=== PATIENT | female | born 1980 | race Caucasian/White ===

== ENCOUNTER 2020-12-07 18:20 | Inpatient (IN) | payer OTHER ==
[2020-12-07] MEDS ORDERED: LIDOCAINE 1% MPF 30 ML VIAL ONE (21:00)
[2020-12-07] MEDS ORDERED: MORPHINE 4 MG/ML SYR ONE (21:00)
[2020-12-07] MEDS ORDERED: NA CHLORIDE 0.9% 1,000 ML ONE (21:00)
[2020-12-07 21:21] LABS: Basophils % 0.7 % (0-1.3); Hematocrit 39.9 % (36.0-45.0); Lymphocytes % 19.9 % (15.3-44.8); MPV 10.6 fL (7.6-11.3); RBC Red Blood Cell Count 4.38 M/uL (3.86-4.86)
--- NOTE | 2020-12-07 21:29 | ER ---
Nurse's Notes [facility] Name: Christa Lara Age: 40 yrs Sex: Female : 1980 Arrival Date: 12/07/2020 Time: 18:25 Bed 28 Private MD: Diagnosis: Abscess of Bartholin's gland-Left;Cellulitis of buttock-Right;Hyperglycemia, unspecified Presentation: 12/07 18:45 Chief complaint: Patient states: was at [place] yesterday and was told she had sepsis, em was discharged yesterday and told to go to the ER to get re-evaluated, reports fever of 101 and nausea. Coronavirus screen: Client denies travel out of the [place] in the last 14 days. Ebola Screen: Patient negative for fever greater than or equal to 101.5 degrees Fahrenheit, and additional compatible Ebola Virus Disease symptoms Patient denies exposure to infectious person. Patient denies travel to an Ebola-affected area in the 21 days before illness onset. No symptoms or risks identified at this time. Initial Sepsis Screen: Does the patient meet any 2 criteria? HR > 90 bpm. No. Patient's initial sepsis screen is negative. Does the patient have a suspected source of infection? No. Patient's initial sepsis screen is negative. Risk Assessment: Do you want to hurt yourself or someone else? Patient reports no desire to harm self or others. Onset of symptoms was December 07, 2020. 18:45 Method Of Arrival: Ambulatory em 18:45 Acuity: RAMIRO 3 em Triage Assessment: 22:11 General: Appears in no apparent distress. Behavior is calm, cooperative. 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 - Social history:: Smoking status: Patient reports the use of cigarette tobacco products, smokes one-half pack cigarettes per day. - Family history:: not pertinent. - Hospitalizations: : No recent hospitalization is reported. Vital Signs: 18:45 BP 138 / 105; Pulse 105; Resp 20; Temp 100.3(O); Pulse Ox 99% on R/A; Weight 99.79 kg; em Height 5 ft. 8 in. (172.72 cm); Pain 8/10; 22:46 BP 134 / 71; Pulse 84; Resp 16; Temp 98.9; Pulse Ox 99% ; ak2 18:45 Body Mass Index 33.45 (99.79 kg, 172.72 cm) em ED Course: 18:25 Patient arrived in ED. ds1 18:48 Triage completed. em 18:50 Arm band placed on. em 19:56 Liang Lakhani MD is Attending Physician. rn 20:36 Nabil Hurley is Primary Nurse. ak2 21:00 Assist provider with I \\T\\ D: of an abscess on left Bartholin's gland Set up I\\T\\D tray. bb Performed by Liang Lakhani MD Culture sent to lab. Patient tolerated well. Wound culture swab sent to lab. 21:28 Greg Kelly DO is Hospitalizing Provider. rn 21:59 COVID-19 : Document "Date of Symptom Onset" if Symptomatic. Sent. ak2 Administered Medications: 21:01 Drug: morphine 4 mg Route: IVP; Site: left wrist; ak2 21:02 Drug: NS 0.9% 1000 ml Route: IV; Rate: 1000 ml; Site: left wrist; ak2 21:02 Drug: Lidocaine (1 %) 1 vials Volume: 20 ml; Route: Infiltration; ak2 21:33 Drug: Cefepime 1 grams Route: IVPB; Rate: 200 ml/hr; Infused Over: 30 mins; Site: left ak2 wrist; 21:34 Drug: Tylenol 650 mg Route: PO; ak2 23:57 Drug: vancoMYCIN 1 grams Route: IVPB; Infused Over: 2 hrs; Site: left wrist; ak2 Outcome: 21:28 Decision to Hospitalize by Provider. rn 12/08 00:54 Patient left the ED. mw2 Signatures: Yasmani Brandt RN RN Destinee Quintanilla ds1 Emerita Lr RN RN bb Liang Lakhani MD MD rn [place], MyKena mw2 Nabil Hurley ak2
--- NOTE | 2020-12-07 21:29 | EDPHYS ---
Physician Documentation [facility] Name: Christa Lara Age: 40 yrs Sex: Female : 1980 Arrival Date: 12/07/2020 Time: 18:25 Bed 28 Private MD: ED Physician Liang Lakhani HPI: 12/07 21:21 This 40 yrs old Female presents to ER via Ambulatory with complaints of Fever.rn 21:21 This 40 yrs old Female presents to ER via Ambulatory with complaints of rn Fever, abscess. 21:21 The patient presents with an abscess of the pelvis, The patient presents with rn cellulitis of the buttocks. Description: draining, erythematous, fluctuant. Onset: The symptoms/episode began/occurred 2 week(s) ago. Possible cause(s): unknown. Associated signs and symptoms: Pertinent positives: erythema, fever, swelling. Modifying factors: the symptoms are alleviated by nothing, the symptoms are aggravated by movement, squeezing the lesion and expressing the contents, touching. Severity of symptoms: At their worst the symptoms were moderate, in the emergency department the symptoms are unchanged. The patient has experienced a previous episode. The patient has been recently seen by a physician:. Seen yesterday at [place] emergency room, diagnosed with sepsis and bartholin abscess, given 2 doses on vancomycin, insulin, and felt a little better. Told should be admitted to ICU but eventually discharged. Reports feels worse, with nausea, chills, and increased pain. . 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 - Social history:: Smoking status: Patient reports the use of cigarette tobacco products, smokes one-half pack cigarettes per day. - Family history:: not pertinent. - Hospitalizations: : No recent hospitalization is reported. ROS: 21:21 Constitutional: + fever and chills Eyes: Negative for injury, pain, redness, and rn research, Cardiovascular: Negative for chest pain, and edema, Respiratory: Negative for shortness of breath, cough, wheezing, and pleuritic chest pain, Abdomen/GI: Negative for abdominal pain, diarrhea, and constipation, : + swelling to left labia MS/Extremity: Negative for injury and deformity, Skin: + rash and redness Neuro: Negative for headache, weakness, numbness, tingling, and seizure. Exam: 21:21 Constitutional: This is a well developed, well nourished patient who is awake, alert, rn and in no acute distress. Head/Face: Normocephalic, atraumatic. Cardiovascular: Tachcyardic, regular Respiratory: No increased work of breathing, no retractions or nasal flaring. Abdomen/GI: soft, non-tender Female : + left bartholin abscess with fluctuance and tenderness left inferior labia with central head. Skin: Warm, dry, + mild erythema and induration right inferior buttocks, no fluctuance. No perianal or perineal involvement. MS/ Extremity: Pulses equal, no cyanosis. Neuro: Awake and alert, GCS 15 Vital Signs: 18:45 BP 138 / 105; Pulse 105; Resp 20; Temp 100.3(O); Pulse Ox 99% on R/A; Weight 99.79 kg; em Height 5 ft. 8 in. (172.72 cm); Pain 8/10; 22:46 BP 134 / 71; Pulse 84; Resp 16; Temp 98.9; Pulse Ox 99% ; ak2 18:45 Body Mass Index 33.45 (99.79 kg, 172.72 cm) em Procedures: 21:11 I \\T\\ D: Incision and drainage was performed for an abscess of the left Bartholin's rn gland. Prepped with Betadine, Anesthetized with 2 ml's 1% Lidocaine. Incised with #11 blade. Drained moderate amount purulent fluid. serosanguinous fluid. Packed with word catheter. Dressing: sterile 4x4 gauze, non-Adherent dressing, the patient tolerated the procedure well. MDM: 19:56 Patient medically screened. rn 21:21 Differential diagnosis: abscess, cellulitis. Data reviewed: vital signs, nurses notes, engraver ornamental design test result(s), and as a result, I will admit patient. Counseling: I had a detailed discussion with the patient and/or guardian regarding: the historical points, exam findings, and any diagnostic results supporting the discharge/admit diagnosis, the need for further work-up and treatment in the hospital. Response to treatment: the patient's symptoms have markedly improved after treatment, and as a result, I will admit patient. Admission orders: after a detailed discussion of the patient's condition and case, the admit orders are written by me. ED course: Consulted with Dr. Lombardi, states admit to hospitalist service if needs admit. Bartholin abscess drained and word catheter placed. Requested general surgery consult for buttocks cellulitis, Dr. Rajan contacted and will see patient. IV abx started. Admitted to Dr. Kelly. . 12/08 00:19 ED course: Word catheter fell out, packed cavity with ribbon.. rn 12/07 20:13 Order name: CBC with Diff 12/07 20:13 Order name: Basic Metabolic Panel 12/07 20:13 Order name: Procalcitonin 12/07 20:13 Order name: Blood Culture Adult (2) 12/07 20:13 Order name: Wound Culture 12/07 20:13 Order name: CBC with Automated Diff; Complete Time: 21:29 EDOH 12/07 20:13 Order name: Basic Metabolic Panel; Complete Time: 21:36 EDOH 12/07 20:13 Order name: Procalcitonin; Complete Time: 22:21 EDOH 12/07 21:00 Order name: Urine Microscopic Only bb 12/07 21:54 Order name: COVID-19 : Document "Date of Symptom Onset" if Symptomatic. mw2 12/07 22:44 Order name: [facility] 12/07 23:49 Order name: SARS-COV-2 RT PCR [facility] 12/07 20:13 Order name: IV Start 12/07 20:13 Order name: Glucose Level 12/07 20:13 Order name: Incision \\T\\ Drainage Setup rn 12/07 21:00 Order name: Urine Dipstick-Ancillary (obtain specimen) bb Administered Medications: 12/07 21:01 Drug: morphine 4 mg Route: IVP; Site: left wrist; ak2 21:02 Drug: NS 0.9% 1000 ml Route: IV; Rate: 1000 ml; Site: left wrist; ak2 21:02 Drug: Lidocaine (1 %) 1 vials Volume: 20 ml; Route: Infiltration; ak2 21:33 Drug: Cefepime 1 grams Route: IVPB; Rate: 200 ml/hr; Infused Over: 30 mins; Site: left ak2 wrist; 21:34 Drug: Tylenol 650 mg Route: PO; ak2 23:57 Drug: vancoMYCIN 1 grams Route: IVPB; Infused Over: 2 hrs; Site: left wrist; ak2 Disposition: 12/07/20 21:28 Hospitalization ordered by Greg Kelly for Inpatient Admission. Preliminary diagnosis are Abscess of Bartholin's gland - Left, Cellulitis of buttock - Right, Hyperglycemia, unspecified. - Bed requested for Telemetry/MedSurg (Inpatient). - Status is Inpatient Admission. mw2 - Condition is Stable. - Problem is new. - Symptoms have improved. Signatures: Dispatcher [employer] EDYasmani Matt RN Emerita Rocha RN RN bb Nieto, Roman, MD MD rn Attema, Lee, GLAZE CARRIER-C GLAZE CARRIER-Cla1 Renetta Marquez RN RN tl1 Nicole Mccall mw2 Nabil Hurley [facility] Corrections: (The following items were deleted from the chart) 23:52 21:28 Hospitalization Ordered by Greg Kelly DO for Inpatient Admission. Preliminary tl1 diagnosis is Abscess of Bartholin's gland - Left; Cellulitis of buttock - Right; Hyperglycemia, unspecified. Bed requested for Telemetry/MedSurg (Inpatient). Status is Inpatient Admission. Condition is Stable. Problem is new. Symptoms have improved. rn 12/08 00:54 12/07 23:52 12/07/2020 21:28 Hospitalization Ordered by Greg Kelly DO for Inpatient mw2 Admission. Preliminary diagnosis is Abscess of Bartholin's gland - Left; Cellulitis of buttock - Right; Hyperglycemia, unspecified. Bed requested for Telemetry/MedSurg (Inpatient). Status is Inpatient Admission. Condition is Stable. Problem is new. Symptoms have improved. tl1
[2020-12-07 21:31] LABS: BUN Blood Urea Nitrogen 13 mg/dL (7-18); Bicarbonate 23 mmol/L (21-32); Glucose Level 321 mg/dL (74-106); Sodium Level 136 mmol/L (136-145)
[2020-12-07 21:32] LABS: Potassium 3.9 mmol/L (3.5-5.1)
[2020-12-07] MEDS ORDERED: ACETAMINOPHEN 325 MG TABLET ONE (21:51)
[2020-12-07] MEDS ORDERED: CEFEPIME/SWI 1gm 10 ML ONE (21:52)
[2020-12-07] MEDS ORDERED: VANCOMYCIN 1 GM/VIAL ONE (22:10)
[2020-12-07 23:59] LABS: Urine Bacteria <20 /HPF (<20); Urine RBC <5 /HPF (NONE SEEN)
--- NOTE | 2020-12-08 00:58 | P.HP ---
Certification for Inpatient Patient admitted to: Inpatient With expected LOS: >2 Midnights Patient will require the following post-hospital care: None Practitioner: I am a practitioner with admitting privileges, knowledge of patient current condition, hospital course, and medical plan of care. Services: Services provided to patient in accordance with Admission requirements found in Title 42 Section 412.3 of the Code of Federal Regulations Patient History Date of Service: 12/07/20 Primary Care Provider: MARCUS Reason for admission: Bartholin gland abscess, cellulitis History of Present Illness: 40-year-old female with history of diabetes mellitus type 2, PC OS presents emergency department for fever, pain in the pelvic area. Patient reports that she has seen yesterday at [place] and told that she was likely septic from a Bartholin gland abscess and cellulitis of the right gluteal area, patient was admitted under observation at their facility and given IV antibiotics. Patient was discharged and told to follow up closely but got worse over the course of the next 12-24 hr. Patient was evaluated in the emergency room here, labs were significant only for glucose 321. Patient was febrile and mildly tachycardic on admission to the emergency room. On clinical exam patient was noted to have a large left-sided partially blind abscess and cellulitis to the right gluteal area, ED provider lanced Bartholin's gland abscess and initially inserted a word catheter, the catheter quickly became dislodged and was replaced with plain packing gauze. Patient also noted to have cellulitis of the right gluteal area. ED provider discuss case with gynecology who stated that they would likely not be needed since the Bartholin's cyst was already lanced recommended general surgery consult for cellulitis/further management. General surgery was contacted and will see patient as well. Allergies latex Allergy (Intermediate, Verified 11/28/12 19:36) Itching - Past Medical/Surgical History Diabetic: Yes -: Diabetes mellitus type 2-insulin dependent -: PCOS -: BPD -: -: Partial hysterectomy Psychosocial/ Personal History: Lives with family - Social History Smoking Status: Current every day smoker Alcohol use: No CD- Drugs: No Caffeine use: Yes Place of Residence: Home Review of Systems 10-point ROS is otherwise unremarkable General: Fever, Chills, Malaise, As per HPI Genitourinary: As per HPI Integumentary: As per HPI Physical Examination - Physical Exam General: Alert, In no apparent distress, Oriented x3 HEENT: Atraumatic, PERRLA, Mucous membr. moist/pink Neck: Supple, 2+ carotid pulse no bruit, No LAD, Without JVD or thyroid abnormality Respiratory: Clear to auscultation bilaterally, Normal air movement Cardiovascular: Regular rate/rhythm, Normal S1 S2 Gastrointestinal: Normal bowel sounds, No tenderness Musculoskeletal: No tenderness Integumentary: Other (Cellulitis right gluteal area ) Neurological: Normal gait, Normal speech, Normal strength at 5/5 x4 extr, Normal tone, Normal affect Lymphatics: No axilla or inguinal lymphadenopathy External genitalia: Other (Bartholin gland abscess status post I and D) - Studies Laboratory Data (last 24 hrs) 12/07/20 20:45: Sodium 136, Potassium 3.9, BUN 13, Creatinine 0.46 L, Glucose 321 H 12/07/20 20:45: WBC 5.10, Hgb 13.8, Hct 39.9, Plt Count 160 Assessment and Plan - Plan Assessment Fever, left Bartholin gland abscess status post incision and drainage, right gluteal cellulitis Diabetes mellitus type 2-insulin dependent with hyperglycemia PCOS/BPD Plan Fever, left Bartholin gland abscess status post incision and drainage, right gluteal cellulitis: Wound currently packed with plain gauze, continue with vancomycin/cefepime, blood cultures obtained will continue to follow. Patient has already been on antibiotics for 24 hr after being under observation at stand-alone emergency department, anticipate clinical improvement next 24-48 hr. Will continue to monitor for fever, leukocytosis with daily labs. DVT prophylaxis with Lovenox 40 mg subcutaneous once daily. Diabetes mellitus type 2-insulin dependent with hyperglycemia: A.c. HS Accu- Cheks, sliding scale insulin therapy. A1c with morning labs, continue patient's Lantus with mildly decreased dose, patient reports taking 20 units twice daily will decrease to 15 units twice daily while in the hospital. PCOS/BPD: Stable continue home meds. Discharge Plan: Home Plan to discharge in: 48 Hours - Advance Directives Does patient have a Living Will: No Does patient have a Durable POA for Healthcare: No - Code Status/Comfort Care Code Status Assessed: Yes (Full code) Critical Care: No Time Spent Managing Pts Care (In Minutes): 55
[2020-12-08] MEDS: NICOTINE 14 MG/PAT TD SCH ×3 (01:39→11:00)
[2020-12-08] MEDS ORDERED: ONDANSETRON 4 MG/2 ML VIAL IV PRN (01:39)
[2020-12-08] MEDS ORDERED: MELATONIN 5 MG TABLET PO PRN (01:39)
[2020-12-08] MEDS ORDERED: TRAMADOL HCL 50 MG TAB PO PRN (01:39)
[2020-12-08] MEDS ORDERED: ACETAMINOPHEN 500 MG TAB PO PRN (01:39)
[2020-12-08] MEDS ORDERED: FAMOTIDINE 20 MG/2 ML VIAL IV ONE (01:53)
[2020-12-08] MEDS: NA CHLORIDE 0.9% 1,000 ML IV SCH ×2 (02:03→11:39)
[2020-12-08 03:35] VITALS: BMI 33.4
[2020-12-08] MEDS ORDERED: VANCOMYCIN 0.75 GM in NA CHLORIDE 0.9% 150 ML IVPB ONE (04:30)
[2020-12-08 04:33] LABS: Absolute Lymphocytes (CBC) 1.5 K/uL (0.7-4.9); Basophils % 0.7 % (0-1.3); Hematocrit 35.8 % (36.0-45.0); Lymphocytes % 28.5 % (15.3-44.8); MPV 10.5 fL (7.6-11.3); RBC Red Blood Cell Count 3.95 M/uL (3.86-4.86)
[2020-12-08 04:46] LABS: ALT/SGPT 34 U/L (12-78); AST/SGOT 14 U/L (15-37); Albumin 2.7 g/dL (3.4-5.0); Alkaline Phosphatase 59 U/L (45-117); BUN Blood Urea Nitrogen 10 mg/dL (7-18); Bicarbonate 24 mmol/L (21-32); Bilirubin Total 0.3 mg/dL (0.2-1.0); Glucose Level 279 mg/dL (74-106); Potassium 3.5 mmol/L (3.5-5.1); Protein, Total 5.7 g/dL (6.4-8.2); Sodium Level 139 mmol/L (136-145)
[2020-12-08] MEDS ORDERED: NA CHLORIDE 0.9% 250 ML ONE (05:18)
[2020-12-08] MEDS ORDERED: VANCOMYCIN 1 GM/VIAL ONE (05:18)
[2020-12-08 05:24] LABS: Urine Appearance CLEAR (Clear); Urine Bilirubin NEGATIVE (Negataive); Urine Blood NEGATIVE (Negative); Urine Color YELLOW (Yellow); Urine Glucose 3+ (Negative); Urine Protein NEGATIVE (Negative); Urine Specific Gravity 1.015 (1.005-1.030); Urine Urobilinogen 0.2 mg/dL (0.2-1.0)
[2020-12-08 05:25] LABS: Urine Microscopic Reflex NO UMIC
[2020-12-08] MEDS: INSULIN -REGULAR HUMAN 50 UNIT/0.5 ML ML SQ SCH ×4 (07:30→20:50)
[2020-12-08] MEDS: HYDROCODONE/APAP 5/325 MG TAB PO PRN ×3 (07:54→20:47)
[2020-12-08] MEDS: INSULIN GLARGINE 100 UNITS/ML SQ SCH ×2 (07:58→20:49)
[2020-12-08] MEDS: ENOXAPARIN 40 MG/0.4 ML SQ SCH (07:59)
[2020-12-08] MEDS: CEFEPIME/SWI 1gm 10 ML IVP SCH ×2 (08:59→20:50)
[2020-12-08] MEDS ORDERED: POTASSIUM CL SA 10 MEQ TAB PO ONE (09:00)
[2020-12-08] MEDS ORDERED: LACTOBACILLUS/ACIDOPHILUS TAB PO SCH (09:00)
[2020-12-08] MEDS ORDERED: VANCOMYCIN/NS 1 gm 1 GM/250 ML BAG IVPB SCH (09:00)
[2020-12-08] MEDS ORDERED: CEFEPIME 1 GM/VIAL IV SCH (09:00)
--- NOTE | 2020-12-08 14:35 | P.PN ---
Subjective Date of Service: 12/08/20 Primary Care Provider: MARCUS Chief Complaint: Bartholin gland abscess, cellulitis Subjective: Improving, Doing well Physical Examination - Vital Signs Temperature: 97.7 F Blood Pressure: 128/80 Pulse: 84 Respirations: 18 Pulse Ox (%): 98 - Studies Laboratory Data (last 24 hrs) 12/07/20 20:45: Sodium 136, Potassium 3.9, BUN 13, Creatinine 0.46 L, Glucose 321 H 12/07/20 20:45: WBC 5.10, Hgb 13.8, Hct 39.9, Plt Count 160 Microbiology Data (last 24 hrs): 12/07/20 21:00 Wound - Bartholin,L Gram Stain - Final Assessment & Plan Discharge Plan: Home Plan to discharge in: 24 Hours Physician Review Additional Text: Physical exam: Patient alert, cooperative. Heart: Regular rate and rhythm Lungs: Clear to auscultation Abdomen: Soft nontender nondistended Female exam: Left labial region with noticeable swelling. Packing in place to the left lower quadrant. Slight erythema noted to this region. Erythema also noted to the right buttocks region. Impression: Left Bartholin gland abscess status post incision and drainage Right gluteal cellulitis Diabetes mellitus type 2 insulin-dependent with hyperglycemia Hypertension Bipolar disorder Polycystic ovarian syndrome Obesity, BMI 33.5 Plan: Left Bartholin gland abscess status post incision and drainage: Continue with IV antibiotic therapy. Continue with packing. We will teach family member and patient packing. Will monitor closely. Anticipate improvement over the next 24 hours with likely discharge tomorrow. Will need follow-up with gynecology. Right gluteal cellulitis: Spoke with surgery. Surgical intervention needed. Continue antibiotics. Continue wound care. Diabetes mellitus type 2 insulin-dependent with hyperglycemia: Continue Lantus. Sliding scale in place. Will increase Metformin to twice daily. Hypertension: Restart lisinopril Bipolar disorder: Restart home medication Polycystic ovarian syndrome: Patient on Metformin. Obesity, BMI 33.5: Continue lifestyle modification education. Time Spent Managing Pts Care (In Minutes): 55
--- NOTE | 2020-12-08 15:53 | CON ---
Date of Consultation: 12/07/2020 Reason: Cellulitis and abscess in the perineum. History Of Present Illness: The patient is a 40-year-old female, who was admitted through the emerge ncy room for Bartholin cyst and abscess and cellulitis on her rectum and the patient had an I and D o f the Bartholin abscess in the ER and I was asked to evaluate and follow the patient [facility]. She is awake, alert, and states that when she went to the bathroom, the packing came out nayeli ier today. States that the symptoms are better. She did is a diabetic and her glucose was over 300 when she was admitted. that is being controlled and she is on IV antibiotics and no sore throat, runn y nose, cough, headaches, or dizziness. No chest pain. No fever or chills. Review of Systems: Otherwise unremarkable. Past Medical History: Type 2 diabetes, polycystic ovarian syndrome. Past Surgical History: and hysterectomy. Allergies: INCLUDE LATEX. Social History: The patient does smoke. Denies alcohol. Family History: Noncontributory. Physical Examination: Vital Signs: Stable. She is afebrile. General: She is awake, alert, and oriented x3. Head and Neck: Cranial nerves 2 through 12 are grossly within normal limits. No neck masses. No JV D. Throat clear. Neck is supple. Chest: Clear. Heart: S1, S2. Abdomen: Soft. Extremities: Neurovascularly intact. Neurologic: Nonfocal. Pelvic: On the left labia, there is approximately a 5 mm incision that has tried to close up. This was opened up with a Q-tip to allow for drainage and then was repacked with Nu Gauze. Erythema and e selwyn appears to be decreasing. On the right perirectal region, there is redness as well and slightly open wound, but there is no fluctuance, no abscess there. Laboratory Data: White count is normal. Chemistry shows glucose to be 255. Cultures are pending. Assessment: A 40-year-old female with diabetes, abscess and cellulitis of the perineum. Recommendation: Antibiotics as ordered. Check culture. Adjust antibiotics. The patient by tomorro w can be discharged home on oral antibiotics. Wound care as ordered and follow up with Dr. Lombardi as an outpatient. No need for any General Surgery intervention at this time. We will follow the patien t while in the hospital. GREG/LUCA Voice ID: [id number] Report ID: [id number]
[2020-12-08] MEDS: VANCOMYCIN 1.75 GM in NA CHLORIDE 0.9% 500 ML IVPB SCH (17:21)
[2020-12-08] MEDS: METFORMIN HCL 500 MG TAB PO SCH (17:21)
[2020-12-08] MEDS ORDERED: NA CHLORIDE 0.9% 500 ML ONE (17:50)
[2020-12-08] MEDS: LURASIDONE HCL 20 MG PO SCH (20:51)
[2020-12-08] MEDS ORDERED: HOME MED 1 EA UNK (Metformin Hcl [Metformin Hcl] 1,000 MG Tablet) PO SCH (21:00)
[2020-12-09] MEDS: HYDROCODONE/APAP 5/325 MG TAB PO PRN ×2 (03:42→08:52)
[2020-12-09] MEDS ORDERED: POLYETHYL GLY 3350 17 GM/DOSE PO PRN (04:34)
[2020-12-09] MEDS: VANCOMYCIN 1.75 GM in NA CHLORIDE 0.9% 500 ML IVPB SCH (04:55)
[2020-12-09 05:07] LABS: Absolute Lymphocytes (CBC) 1.8 K/uL (0.7-4.9); Basophils % 0.9 % (0-1.3); Hematocrit 38.1 % (36.0-45.0); Lymphocytes % 41.7 % (15.3-44.8); MPV 10.8 fL (7.6-11.3); RBC Red Blood Cell Count 4.14 M/uL (3.86-4.86)
[2020-12-09 05:25] LABS: ALT/SGPT 47 U/L (12-78); AST/SGOT 27 U/L (15-37); Albumin 2.6 g/dL (3.4-5.0); Alkaline Phosphatase 56 U/L (45-117); BUN Blood Urea Nitrogen 10 mg/dL (7-18); Bicarbonate 26 mmol/L (21-32); Bilirubin Total 0.2 mg/dL (0.2-1.0); Glucose Level 197 mg/dL (74-106); Potassium 3.8 mmol/L (3.5-5.1); Protein, Total 5.7 g/dL (6.4-8.2); Sodium Level 142 mmol/L (136-145)
[2020-12-09] MEDS: ENOXAPARIN 40 MG/0.4 ML SQ SCH (07:58)
[2020-12-09] MEDS: NICOTINE 14 MG/PAT TD SCH (07:59)
[2020-12-09] MEDS: METFORMIN HCL 500 MG TAB PO SCH (07:59)
[2020-12-09] MEDS: CEFEPIME/SWI 1gm 10 ML IVP SCH (08:01)
[2020-12-09] MEDS: INSULIN -REGULAR HUMAN 50 UNIT/0.5 ML ML SQ SCH ×2 (08:02→12:09)
[2020-12-09] MEDS: LURASIDONE HCL 20 MG PO SCH (08:02)
[2020-12-09] MEDS: INSULIN GLARGINE 100 UNITS/ML SQ SCH (08:03)
[2020-12-09] MEDS ORDERED: HOME MED 1 EA UNK (Multivitamin [Multiple Vitamins] Tablet) PO SCH (09:00)
[2020-12-09] MEDS ORDERED: MULTIVITAMIN TAB PO SCH (09:00)
[2020-12-09] MEDS ORDERED: HOME MED 1 EA UNK (Lactobacillus Acidophilus [Probiotic] Capsule) PO SCH (09:00)
[2020-12-09] MEDS ORDERED: lisinopriL 5 MG TAB PO SCH (09:00)
[2020-12-09] MEDS ORDERED: lamoTRIgine 100 MG TAB PO SCH (09:00)
[2020-12-09] MEDS ORDERED: POTASSIUM 25 MEQ EFFERV TAB PO ONE (09:00)
[2020-12-09] MEDS ORDERED: LACTOBACILLUS/ACIDOPHILUS TAB PO SCH (09:00)
[2020-12-09] MEDS ORDERED: lamoTRIgine 25 MG TAB PO SCH (09:00)
--- NOTE | 2020-12-09 10:00 | P.DS ---
Admission Date: 12/07/20 Discharge Date: 12/09/20 Primary Care Provider: MARCUS Disposition: ROUTINE DISCHARGE Discharge Condition: GOOD Reason for Admission: Bartholin gland abscess, cellulitis Consultations: Surgery-Dr. 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 Patient reports that she has seen yesterday at [facility] and told that she was likely septic from a Bartholin gland abscess and cellulitis of the right gluteal area, patient was admitted under observation at their facility and given IV antibiotics. Patient was discharged and told to follow up closely but got worse over the course of the next 12-24 hr. Patient was evaluated in the emergency room here, labs were significant only for glucose 321. Patient was febrile and mildly tachycardic on admission to the emergency room. On clinical exam patient was noted to have a large left-sided partially blind abscess and cellulitis to the right gluteal area, ED provider lanced Bartholin's gland abscess and initially inserted a word catheter, the catheter quickly became dislodged and was replaced with plain packing gauze. Patient also noted to have cellulitis of the right gluteal area. ED provider discuss case with gynecology who stated that they would likely not be needed since the Bartholin's cyst was already lanced recommended general surgery consult for cellulitis/further management. General surgery was contacted and will see patient as well. Patient admitted for further evaluation and treatment. Hospital Course: Patient was a direct admit from [facility] for continued treatment of left Bartholin gland abscess status post I&D. Patient also had a right gluteal cellulitis. Patient continue with IV to buttock therapy in the hospital. Also seen by surgery. No surgical intervention was required. Swelling improved. Patient continued with wound care which included packing of the abscess. At discharge patient has done well. At discharge patient will continue with Augmentin 500 mg 1 pill twice daily and doxycycline 100 mg 1 pill twice daily for 10 days. Patient will continue with lactobacillus as directed. Recommend follow-up with gynecology as an outpatient to further address and monitor her condition. Patient plans to follow-up with gynecology within 1 week. Patient may follow-up with surgery in 1 week to address the right gluteal cellulitis. Education on wound care provided. Patient with diabetes mellitus type 2 insulin-dependent with hyperglycemia. Hemoglobin A1c 12.9. Better diabetic control required. During her hospitalization Metformin was increased to twice daily. At discharge patient will continue with Lantus 20 units subcu twice daily, NovoLog 15 units subcu 3 times a day and Metformin 1000 mg 1 pill twice daily. Recommend to maintain blood sugar less than 140 fasting and less than 200 after meals. If blood sugar remains above 200 she may increase Lantus for better control. Recommend follow- up with her PCP to further monitor and address her condition. Recommend to recheck hemoglobin A1c in 3 months to further monitor and address her diabetes. Patient with hypertension. This is remained stable. At discharge patient will continue with lisinopril 10 mg daily. Patient with bipolar disorder. At discharge she will continue with her current medications of Lamictal 25 mg daily and Latuda 20 mg 1 pill twice daily. Recommend follow-up with psychiatry to further address. Patient with polycystic ovarian syndrome. She may continue with Metformin as directed. Recommend follow-up with gynecology to further address. Vital Signs/Physical Exam: Temp Pulse Resp BP Pulse Ox 97.4 F 66 18 121/75 99 12/09/20 08:00 12/09/20 08:00 12/09/20 08:52 12/09/20 08:00 12/09/20 08:52 General: Alert, In no apparent distress, Oriented x3, Cooperative HEENT: Atraumatic Neck: Supple Respiratory: Clear to auscultation bilaterally, Normal air movement Cardiovascular: Normal pulses, Regular rate/rhythm Gastrointestinal: Normal bowel sounds, No tenderness, No masses, No rebound, No guarding Musculoskeletal: No tenderness, No warmth Integumentary: Other (No significant erythema to the labial region. Left labial swelling improved. No evidence of increased secretions. Erythema to the right buttocks improved) Neurological: Normal speech, Normal strength at 5/5 x4 extr, Normal tone, Normal affect Laboratory Data at Discharge: WBC 4.40 K/uL (4.3-10.9) D 12/09/20 03:34 Hgb 12.9 g/dL (12.0-15.0) 12/09/20 03:34 Hct 38.1 % (36.0-45.0) 12/09/20 03:34 Plt Count 161 K/uL (152-406) 12/09/20 03:34 Sodium 142 mmol/L (136-145) 12/09/20 03:34 Potassium 3.8 mmol/L (3.5-5.1) 12/09/20 03:34 BUN 10 mg/dL (7-18) 12/09/20 03:34 Creatinine 0.39 mg/dL (0.55-1.3) L 12/09/20 03:34 Glucose 197 mg/dL (74-106) H 12/09/20 03:34 Total Bilirubin 0.2 mg/dL (0.2-1.0) 12/09/20 03:34 AST 27 U/L (15-37) 12/09/20 03:34 ALT 47 U/L (12-78) 12/09/20 03:34 Alkaline Phosphatase 56 U/L (45-117) 12/09/20 03:34 Home Medications: Insulin Aspart [Novolog Flexpen] 15 units SQ TID 12/08/20 Insulin Glargine,Hum.rec.anlog [Lantus Solostar] 20 unit SQ BID 12/08/20 Lactobacillus Acidophilus [Probiotic] 1 cap PO DAILY 12/08/20 Lamotrigine [Lamictal] 1 tab PO DAILY 12/08/20 Lisinopril [Zestril] 1 tab PO DAILY 12/08/20 Lurasidone HCl [Latuda] 1 tab PO BID 12/08/20 Multivitamin [Multiple Vitamins] 1 tab PO DAILY 12/08/20 Mupirocin Oint [Bactroban 2% Ointment*] 1 appl VAG TID 12/08/20 Amox/Clavulanate [Augmentin 500-125 mg Tab] 500 mg PO BID #20 tab 12/09/20 Doxycycline Hyclate 100 mg PO BID #20 tablet 12/09/20 Metformin HCl [Glucophage*] 1,000 mg PO BIDWM #60 tab 12/09/20 New Medications: Amox/Clavulanate [Augmentin 500-125 mg Tab] 500 mg PO BID #20 tab Doxycycline Hyclate 100 mg PO BID #20 tablet Metformin HCl [Glucophage*] 1,000 mg PO BIDWM #60 tab Physician Discharge Instructions: Patient was a direct admit from [facility] for continued treatment of left Bartholin gland abscess status post I&D. Patient also had a right gluteal cellulitis. Patient continue with IV to buttock therapy in the hospital. Also seen by surgery. No surgical intervention was required. Swelling improved. Patient continued with wound care which included packing of the abscess. At discharge patient has done well. At discharge patient will continue with Augmentin 500 mg 1 pill twice daily and doxycycline 100 mg 1 pill twice daily for 10 days. Patient will continue with lactobacillus as directed. Recommend follow-up with gynecology as an outpatient to further address and monitor her condition. Patient plans to follow-up with gynecology within 1 week. Patient may follow-up with surgery in 1 week to address the right gluteal cellulitis. Education on wound care provided. Patient with diabetes mellitus type 2 insulin-dependent with hyperglycemia. Hemoglobin A1c 12.9. Better diabetic control required. During her hospitalization Metformin was increased to twice daily. At discharge patient will continue with Lantus 20 units subcu twice daily, NovoLog 15 units subcu 3 times a day and Metformin 1000 mg 1 pill twice daily. Recommend to maintain blood sugar less than 140 fasting and less than 200 after meals. If blood sugar remains above 200 she may increase Lantus for better control. Recommend follow- up with her PCP to further monitor and address her condition. Recommend to recheck hemoglobin A1c in 3 months to further monitor and address her diabetes. Patient with hypertension. This is remained stable. At discharge patient will continue with lisinopril 10 mg daily. Patient with bipolar disorder. At discharge she will continue with her current medications of Lamictal 25 mg daily and Latuda 20 mg 1 pill twice daily. Recommend follow-up with psychiatry to further address. Patient with polycystic ovarian syndrome. She may continue with Metformin as directed. Recommend follow-up with gynecology to further address. Diet: ADA Activity: Ad suraj Followup: MILES AQUINO [Primary Care Provider] - Time spent managing pt's care (in minutes): 55
[2020-12-09 10:15] VITALS: O2SAT 99
--- NOTE | 2020-12-09 10:28 | RAD REPORT ---
EXAM DESCRIPTION: CT - Head Brain Wo Cont - 12/09/2020 10:22 am CLINICAL HISTORY: right frontal CHOW Headache, drowsiness COMPARISON: No comparisons TECHNIQUE: All CT scans are performed using dose optimization technique as appropriate and may inclu de automated exposure control or mA/KV adjustment according to patient size. FINDINGS: No intracranial hemorrhage, hydrocephalus or extra-axial fluid collection.No areas of brai n edema or evidence of midline shift. The paranasal sinuses and mastoids are clear. The calvarium is intact. IMPRESSION: No acute intracranial abnormality.
--- NOTE | 2020-12-09 11:09 | PN ---
Date of Progress Note: 12/09/2020 Subjective: The patient is alert, awake. Complaining of headache. Objective: Vital Signs: Stable, afebrile. Extremities: Wound is clean. There is decreasing erythema and edema Laboratory Data: Cultures still pending, but preliminary report shows no growth. Assessment: Status post I and D of a Bartholin cyst abscess. Recommendations: The patient is cleared from surgical standpoint for discharge. Follow up with Dr. Escalante for antibiotics. Wet-to-dry dressing changes as ordered. /MODL Voice ID: [id number] Report ID: [id number]
[2020-12-09 13:03] VITALS: BP 119/75; TEMP 97.8
== END 2020-12-09 13:24 | disposition home or self-care (01) | DRG 758 ==
LOC: ER 18:20 → ERHOLD 21:52 → 2ND 12-08 01:29
PROVIDERS: ADMIT Family Medicine; ATTEND Family Medicine
PROC: 0U9LXZZ Drainage of Vestibular Gland, External Approach (ICD-10-PCS; principal; 2020-12-07)
DX: N75.1 Abscess of Bartholin's gland (principal); L03.317 Cellulitis of buttock; F17.210 Nicotine dependence, cigarettes, uncomplicated; E28.2 Polycystic ovarian syndrome; E66.9 Obesity, unspecified; E11.65 Type 2 diabetes mellitus with hyperglycemia; F31.9 Bipolar disorder, unspecified; N73.9 Female pelvic inflammatory disease, unspecified; Z90.710 Acquired absence of both cervix and uterus; Z79.4 Long term (current) use of insulin; Z91.040 Latex allergy status; Z68.33 Body mass index [BMI] 33.0-33.9, adult; Z79.899 Other long term (current) drug therapy; Z20.822 Contact with and (suspected) exposure to COVID-19
CPT/HCPCS: 36415; 70450; 80048; 80053; 81003; 81015; 82947; 83036; 84145; 84439; 84443; 85025; 87040; 87070; 87077; 87186; 87205; 96374; 96375; 99283; J0692; J1650; J1815; J2405; J3370; J7030; J7040; J7050; U0003

== ENCOUNTER 2021-03-16 23:05 | Emergency (ER) | payer OTHER ==
[2021-03-17 00:28] LABS: Basophils % 0.8 % (0-1.3); Hematocrit 47.3 % (36.0-45.0); Lymphocytes % 56.1 % (15.3-44.8); MPV 9.9 fL (7.6-11.3); RBC Red Blood Cell Count 5.22 M/uL (3.86-4.86)
[2021-03-17 00:38] LABS: Protime INR 0.99
[2021-03-17] MEDS ORDERED: KETOROLAC 30 MG/ML INJ ONE (00:41)
[2021-03-17] MEDS ORDERED: NA CHLORIDE 0.9% 1,000 ML ONE (00:41)
[2021-03-17 00:46] LABS: ALT/SGPT 68 U/L (12-78); AST/SGOT 31 U/L (15-37); Albumin 3.5 g/dL (3.4-5.0); Alkaline Phosphatase 76 U/L (45-117); BUN Blood Urea Nitrogen 10 mg/dL (7-18); Bicarbonate 20 mmol/L (21-32); Bilirubin Direct 0.1 mg/dL (0-0.2); Bilirubin Total 0.4 mg/dL (0.2-1.0); Ferritin 368.2 ng/mL (8-388); Glucose Level 281 mg/dL (74-106); Magnesium 1.7 mg/dL (1.8-2.4); NT PRO-BNP 8 pg/mL (<125); Potassium 3.8 mmol/L (3.5-5.1); Protein, Total 7.7 g/dL (6.4-8.2); Sodium Level 134 mmol/L (136-145); Troponin (Emerg Dept Use Only) < 0.02 ng/mL (0.0-0.045)
[2021-03-17 00:54] LABS: Urine Blood Negative (Negative); Urine Glucose 2+ (Negative); Urine Protein 1+ (Negative); Urine Specific Gravity 1.025 (1.005-1.030); Urine pH 5.5 (5.0-7.0)
[2021-03-17 01:16] LABS: Urine Specific Gravity/Preg 1.025 (1.005-1.030)
[2021-03-17] MEDS ORDERED: INSULIN -REGULAR HUMAN 50 UNIT/0.5 ML ML ONE (02:21)
[2021-03-17] MEDS ORDERED: dexAMETHasone 10 MG/ML VIAL ONE (02:22)
--- NOTE | 2021-03-17 03:07 | EDPHYS ---
Physician Documentation [facility] Name: Christa Lara Age: 40 yrs Sex: Female : 1980 Arrival Date: 03/16/2021 Time: 23:12 Bed DX1 Private MD: ED Physician Rosita Maradiaga HPI: 03/16 23:55 This 40 yrs old Female presents to ER via Ambulatory with complaints of cp Shortness Of Breath. 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 - Social history:: Smoking status: Patient reports the use of cigarette tobacco products, smokes one-half pack cigarettes per day, Pt stated, I havent smoked in one month. ROS: 23:57 Constitutional: Positive for body aches, Negative for chills, fever, poor PO intake. cp 23:57 Eyes: Negative for injury, pain, redness, and discharge. cp 23:57 Cardiovascular: Positive for chest pain, of the mid-sternal area, Negative for edema, cp palpitations. 23:57 ENT: Negative for ear pain, sore throat, difficulty swallowing, difficulty handling cp secretions. 23:57 Respiratory: Positive for cough, with no reported sputum, Negative for shortness of breath, wheezing. 23:57 Abdomen/GI: Negative for abdominal pain, nausea, vomiting, and diarrhea. 23:57 Back: Negative for pain at rest, pain with movement. 23:57 Neuro: Negative for altered mental status, headache, syncope, weakness. 23:57 All other systems are negative. Exam: 23:55 ECG was reviewed by the Attending Physician. cp 23:59 Constitutional: The patient appears in no acute distress, alert, awake, cp non-diaphoretic, non-toxic, well developed, well nourished. 23:59 Head/Face: Normocephalic, atraumatic. cp 23:59 Eyes: Periorbital structures: appear normal, Conjunctiva: normal, no exudate, no injection, Sclera: no appreciated abnormality, Lids and lashes: appear normal, bilaterally. 23:59 ENT: External ear(s): are unremarkable, Nose: is normal, Mouth: Lips: moist, Oral mucosa: moist, Posterior pharynx: Airway: no evidence of obstruction, patent. 23:59 Neck: ROM/movement: is normal, is supple, without pain, no range of motions limitations. 23:59 Chest/axilla: Inspection: normal. 23:59 Cardiovascular: Rate: tachycardic, Rhythm: regular, Edema: is not appreciated, JVD: is not appreciated. 23:59 Respiratory: the patient does not display signs of respiratory distress, Respirations: normal, no use of accessory muscles, no retractions, labored breathing, is not present, Breath sounds: are clear throughout, no decreased breath sounds, no stridor, no wheezing. 23:59 Abdomen/GI: Exam negative for discomfort, distension, guarding, Inspection: abdomen appears normal. Vital Signs: 23:39 BP 142 / 99; Pulse 113; Resp 20; Temp 98.8(O); Pulse Ox 97% on R/A; Weight 95.25 kg kg (R); Height 5 ft. 8 in. (172.72 cm); Pain 4/10; 03/17 03:58 BP 121 / 87; Pulse 86; Resp 18; Temp 98.3(O); Pulse Ox 95% on R/A; Pain 0/10; em 03/16 23:39 Body Mass Index 31.93 (95.25 kg, 172.72 cm) kg MDM: 00:00 Patient medically screened. cp 02:23 Data reviewed: vital signs, nurses notes, lab test result(s), EKG, radiologic studies, cp CT scan, plain films. ED course: Vital signs stable. Pain improved. Discussed results of labs, EKG, initial troponin was negative, CT of chest negative for pulmonary embolism. We will repeat a 4-hour troponin and if negative will discharge patient to home with a prescription for Zithromax and Decadron patient instructed CT chest showed showed Covid pneumonia. Patient is to monitor oxygen sats and if feels like symptoms are worsening he needs to be reevaluated. 03/16 23:58 Order name: Basic Metabolic Panel cp 03/16 23:58 Order name: CBC with Diff; Complete Time: : cp 03/17 01:27 Interpretation: Normal except: WBC 3.60; RBC 5.22; HGB 16.3; HCT 47.3; PLT 128; KERLINE% cp 33.5; LYM% 56.1; NEUT A 1.2. 03/16 23:58 Order name: LFT's cp 03/16 23:58 Order name: Magnesium cp 03/16 23:58 Order name: NT PRO-BNP; Complete Time: : cp 03/16 23:58 Order name: PT-INR; Complete Time: cp 03/16 23:58 Order name: Troponin (emerg Dept Use Only); Complete Time: : cp 03/16 23:58 Order name: Ferritin; Complete Time: cp 03/16 23:58 Order name: CRP; Complete Time: cp 03/17 01:27 Interpretation: Abnormal: C-REACTIVE PROT 13.70. cp 03/16 23:58 Order name: D-Dimer; Complete Time: cp 03/16 23:59 Order name: Basic Metabolic Panel; Complete Time: EDMS 03/17 01:28 Interpretation: Normal except: NA 134; CO2 20; GLUC 281; CRE 0.44. cp 03/16 23:59 Order name: Liver (Hepatic) Function; Complete Time: : EDMS 03/16 23:59 Order name: Magnesium; Complete Time: EDMS 03/17 00:54 Order name: Urine Dipstick-Ancillary; Complete Time: : EDMS 03/17 01:28 Interpretation: Normal except: UGLUC 2+; UKET 4+; UPROT 1+. cp 03/16 23:48 Order name: XRAY Chest Pa And Lat (2 Views) kg 03/16 23:48 Order name: EKG - Nurse/Tech; Complete Time: 23:48 kg 03/16 23:58 Order name: Cardiac monitoring; Complete Time: 00:26 cp 03/16 23:58 Order name: IV Saline Lock; Complete Time: 00:26 cp 03/16 23:58 Order name: Labs collected and sent; Complete Time: 00:16 cp 03/16 23:58 Order name: O2 Per Protocol; Complete Time: 00:16 cp 03/16 23:58 Order name: O2 Sat Monitoring; Complete Time: 00:16 cp 03/17 00:38 Order name: CT Chest For PE Angio cp 03/17 00:58 Order name: Urine --Ancillary (enter results); Complete Time: 01:27 oe 03/17 03:46 Order name: Troponin (emerg Dept Use Only); Complete Time: 04:29 em 03/16 23:58 Order name: Urine Dipstick-Ancillary (obtain specimen); Complete Time: 01:05 cp 03/16 23:58 Order name: Urine Test (obtain specimen); Complete Time: 01:05 cp EC/19 23:55 Rate is 114 beats/min. Rhythm is regular. NE interval is normal. QRS interval is cp normal. QT interval is normal. Q waves are Present in lead III. Interpreted by me. Reviewed by me. Administered Medications: 03/17 00:26 Drug: NS 0.9% 1000 ml Route: IV; Rate: 1 bolus; Site: left antecubital; em 03:59 Follow up: IV Status: Completed infusion; IV Intake: 1000ml em 00:26 Drug: Ketorolac 15 mg Route: IVP; Site: left antecubital; em 01:05 Follow up: Response: No adverse reaction; Marked relief of symptoms; Pain is decreased em 01:56 Not Given (Physician Discretion): SOLU-Medrol (methylPrednisoLONE) 125 mg IVP once cp 02:03 Not Given (Physician Discretion): NovoLIN R (insulin regular human) 10 units IVP once em 02:03 Drug: Decadron - Dexamethasone 10 mg Route: IVP; Site: left antecubital; em 03:59 Follow up: Response: No adverse reaction em 02:03 Drug: Insulin Regular Human 10 units {Co-Signature: bs2 (Tamra Sanchez RN).} Route: em Sub-Q; Site: right lower abdomen; 03:46 Follow up: Response: No adverse reaction em 03:47 Follow up: Response: No adverse reaction em Disposition: 07:32 Co-signature as Attending Physician, Rosita Maradiaga I agree with the assessment and plan sp3 of care. Disposition Summary: 03/17/21 03:06 Discharge Ordered Location: Home cp Problem: new cp Symptoms: have improved cp Condition: Stable cp Diagnosis - Other viral pneumonia cp - SARS-associated coronavirus as the cause of diseases classified elsewhere cp - Chest pain on breathing cp Followup: cp - With: Private Physician - When: 2 - 3 days - Reason: Recheck today's complaints Discharge Instructions: - Discharge Summary Sheet cp - COVID-19 cp - Things to Know about the COVID-19 Pandemic - [facility] cp - 10 Things You Can Do to Manage Your COVID-19 Symptoms at Home - [facility] cp - COVID-19: Quarantine vs. Isolation - [facility] cp - Prevent the Spread of COVID-19 if You Are Sick - [facility] cp Forms: - Medication Reconciliation Form cp - Thank You Letter cp - Antibiotic Education cp - Prescription Opioid Use cp Prescriptions: - albuterol sulfate 90 mcg/actuation Inhalation HFA aerosol inhaler - inhale 1 puff by INHALATION route every 4-6 hours; 1 Inhaler; Refills: 0, cp Product Selection Permitted - dexamethasone 2 mg Oral tablet - take 1 tablet by ORAL route 3 times per day for 5 days; 15 tablet; Refills: 0, cp Product Selection Permitted - Zithromax Z-Yuan 250 mg Oral Tablet - take 1 tablet by ORAL route as directed for 5 days Day 1 - take two (2) tablets cp one time. Day 2, 3, 4 , 5 take one (1) tablet once daily.; 6 tablet; Refills: 0, Product Selection Permitted Signatures: Dispatcher [employer] Yasmani Patel, RN RN Bal Dyer PA PA cp Lina Gibson, RN RN Rosita Chandler sp3 Tamra Sanchez RN bs2
--- NOTE | 2021-03-17 03:07 | ER ---
Nurse's Notes [facility] Name: Christa Lara Age: 40 yrs Sex: Female : 1980 Arrival Date: 03/16/2021 Time: 23:12 Bed DX1 Private MD: Diagnosis: Other viral pneumonia;SARS-associated coronavirus as the cause of diseases classified elsewhere;Chest pain on breathing Presentation: 03/16 23:39 Chief complaint: Patient states: Sob, Cough, Chest pain starting today. Covid + x 1.5 kg wks. Coronavirus screen: Client denies travel out of the [place] in the last 14 days. At this time, unable to obtain information related to travel outside the [place] Client presents with at least one sign or symptom that may indicate coronavirus-19. Standard/surgical mask placed on the client. Provider contacted for isolation considerations. Client reports previous positive COVID test result. Date of collection: March 14, 2021. Ebola Screen: Patient negative for fever greater than or equal to 101.5 degrees Fahrenheit, and additional compatible Ebola Virus Disease symptoms Patient denies exposure to infectious person. Patient denies travel to an Ebola-affected area in the 21 days before illness onset. Initial Sepsis Screen: Does the patient meet any 2 criteria? No. Patient's initial sepsis screen is negative. Does the patient have a suspected source of infection? No. Patient's initial sepsis screen is negative. Risk Assessment: Do you want to hurt yourself or someone else? Patient reports no desire to harm self or others. Onset of symptoms was March 16, 2021. 23:39 Method Of Arrival: Ambulatory kg 23:39 Acuity: RAMIRO 3 kg Triage Assessment: 23:43 General: Appears in no apparent distress. Behavior is calm, cooperative, appropriate kg for age, quiet. Pain: Complains of pain in mid-sternal area. Respiratory: Reports shortness of breath at rest on exertion cough that is productive, pain with cough pain with respiration Onset: The symptoms/episode began/occurred today, the patient has mild shortness of breath. 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 - Social history:: Smoking status: Patient reports the use of cigarette tobacco products, smokes one-half pack cigarettes per day, Pt stated, I havent smoked in one month. Screenin:47 Abuse screen: Denies threats or abuse. Denies injuries from another. Nutritional kg screening: No deficits noted. Tuberculosis screening: No symptoms or risk factors identified. Fall Risk None identified. Assessment: 03/17 00:30 General: Appears in no apparent distress. comfortable, Behavior is calm, cooperative. em Pain: Complains of pain in chest Pain currently is 3 out of 10 on a pain scale. Neuro: Level of Consciousness is awake, alert, obeys commands, Oriented to person, place, time, situation. Cardiovascular: Capillary refill < 3 seconds Patient's skin is warm and dry. Rhythm is. Respiratory: Airway is patent Respiratory effort is even, unlabored, Respiratory pattern is regular, symmetrical. GI: Abdomen is flat. Derm: Skin is intact, is healthy with good turgor, Skin is pink, warm \T\ dry. Musculoskeletal: Capillary refill < 3 seconds, Range of motion: intact in all extremities. 01:30 Reassessment: Patient appears in no apparent distress at this time. Patient and/or em family updated on plan of care and expected duration. Pain level reassessed. Patient is alert, oriented x 3, equal unlabored respirations, skin warm/dry/pink. 02:00 Reassessment: pt will be discharged after repeat trop. in 2 hours. em 02:40 Reassessment: Patient appears in no apparent distress at this time. Patient and/or em family updated on plan of care and expected duration. Pain level reassessed. Patient is alert, oriented x 3, equal unlabored respirations, skin warm/dry/pink. 03:59 Reassessment: Patient appears in no apparent distress at this time. Patient and/or em family updated on plan of care and expected duration. Pain level reassessed. Patient is alert, oriented x 3, equal unlabored respirations, skin warm/dry/pink. Vital Signs: 03/16 23:39 BP 142 / 99; Pulse 113; Resp 20; Temp 98.8(O); Pulse Ox 97% on R/A; Weight 95.25 kg kg (R); Height 5 ft. 8 in. (172.72 cm); Pain 4/10; 03/17 03:58 BP 121 / 87; Pulse 86; Resp 18; Temp 98.3(O); Pulse Ox 95% on R/A; Pain 0/10; em 03/16 23:39 Body Mass Index 31.93 (95.25 kg, 172.72 cm) kg ED Course: 03/16 23:12 Patient arrived in ED. wm 23:42 Triage completed. kg 23:43 Arm band placed on right wrist. kg 23:47 Patient has correct armband on for positive identification. kg 23:47 No provider procedures requiring assistance completed. kg 23:51 Bal Wilkerson PA is PHCP. cp 23:51 Rosita Maradiaga is Attending Physician. cp 03/17 00:05 Yasmani Brandt, RN is Primary Nurse. em 00:17 XRAY Chest Pa And Lat (2 Views) In Process Unspecified. EDMS 00:23 Inserted saline lock: 22 gauge in left antecubital area, using aseptic technique. em 01:11 CT Chest For PE Angio In Process Unspecified. EDMS 04:35 IV discontinued, intact, bleeding controlled, No redness/swelling at site. Pressure em dressing applied. Administered Medications: 00:26 Drug: NS 0.9% 1000 ml Route: IV; Rate: 1 bolus; Site: left antecubital; em 03:59 Follow up: IV Status: Completed infusion; IV Intake: 1000ml em 00:26 Drug: Ketorolac 15 mg Route: IVP; Site: left antecubital; em 01:05 Follow up: Response: No adverse reaction; Marked relief of symptoms; Pain is decreased em 01:56 Not Given (Physician Discretion): SOLU-Medrol (methylPrednisoLONE) 125 mg IVP once cp 02:03 Not Given (Physician Discretion): NovoLIN R (insulin regular human) 10 units IVP once em 02:03 Drug: Decadron - Dexamethasone 10 mg Route: IVP; Site: left antecubital; em 03:59 Follow up: Response: No adverse reaction em 02:03 Drug: Insulin Regular Human 10 units {Co-Signature: bs2 (Tamra Sanchez RN).} Route: em Sub-Q; Site: right lower abdomen; 03:46 Follow up: Response: No adverse reaction em 03:47 Follow up: Response: No adverse reaction em Intake: 03:59 IV: 1000ml; Total: 1000ml. em Outcome: 03:06 Discharge ordered by MD. cp 04:35 Discharged to home ambulatory. em 04:35 Condition: stable 04:35 Discharge instructions given to patient, Instructed on discharge instructions, follow up and referral plans. medication usage, Demonstrated understanding of instructions, follow-up care, medications, Prescriptions given X 3. 04:35 Patient left the ED. em Signatures: Dispatcher [employer] Yasmani Patel RN RN em Bal Wilkerson PA PA cp Graham, Kristen, RN RN Charissa Burris Tamra Sanchez RN bs2
[2021-03-17 04:55] VITALS: BP 121/87; TEMP 98.3; O2SAT 95
--- NOTE | 2021-03-17 08:55 | RAD REPORT ---
EXAM DESCRIPTION: RAD - Chest Pa And Lat (2 Views) - 03/17/2021 12:11 am CLINICAL HISTORY: CHEST PAIN COMPARISON: March 2005 TECHNIQUE: Frontal and lateral views of the chest were obtained. FINDINGS: The lungs are normal volume. Patchy airspace opacification present in the mid and lower le ft lung field with minimal right base lung parenchymal opacification. COVID testing findings were no t available at time of this dictation. In the acute clinical environment, a COVID-19 pneumonia would be a primary consideration. Non COVID influenza pneumonia and organizing pneumonia can have this appe arance as well. Heart size is normal and central vasculature is within normal limits. No pleural effusion or pneumo thorax seen. No acute bony finding noted. No aortic abnormality. IMPRESSION: Patchy mid and lower left lung field pneumonia findings with minimal right base opacific ation. In the acute clinical environment, COVID-19 would be the primary consideration. Non COVID pneumonia e tiologies are also possible.
--- NOTE | 2021-03-17 11:08 | RAD REPORT ---
EXAM DESCRIPTION: CT - Chest For Pe Angio - 03/17/2021 6:52 am CLINICAL HISTORY: 40 years, Female, CHEST PAIN COMPARISON: None. TECHNIQUE: Multiple transaxial tomograms of the chest were obtained from the lung apices through the lung bases utilizing 2 mm slice thickness at 2 mm interval reconstruction after the administration o f large bolus of IV contrast for complete opacification of the pulmonary arteries. Subsequent maximum intensity projection images were generated in the coronal and sagittal plane for r eview. This exam was performed according to our departmental dose-optimization protocol, which includes auto mated exposure control, adjustment of the mA and/or kV according to patient size and/or use of iterat kylah reconstruction technique. FINDINGS: The lungs parenchyma demonstrate minimal bilateral central and subpleural groundglass opac ities bilateral upper lobes and lower lobes. There is a subpectoral right lower lobe pulmonary nodule measuring 1.2 cm on image 80. No focal areas of consolidations are identified. The trachea mainstem bronchus demonstrate to be normal. There is no significant pericardial or pleura l effusions. The thoracic aorta demonstrate to be within normal limits. There is no evidence for aneurysm/or signi ficant thoracic aortic dissection allowing for motion at the aortic root. The heart is normal in size . No evidence for right ventricular strain. There are no coronary artery calcifications. There are subclinical hilar/infrahilar lymph nodes most likely reactive in nature. There is no signif icant mediastinal and/or hilar lymphadenopathy. The axillary regions demonstrate to be clear. Pulmonary arteries demonstrate to be normal, no intraluminal defect are seen that would suggest pulmo nary embolus. The bone windows demonstrate no significant skeletal lesions. The visualized portions of the upper abdomen demonstrate decreased attenuation of the liver correspon ding to fatty filtration. IMPRESSION: No evidence for pulmonary embolism and/or significant thoracic aortic dissection. Commonly reported imaging features of COVID-19 pneumonia are present. Other processes such as influen za pneumonia and organizing pneumonia, as can be seen with drug toxicity and connective tissue diseas e, can cause a similar imaging pattern (Reference: https://pubs.rsna.org/doi/full/10.1148/ryct.901535 1127). 12 mm right solid pulmonary nodule. Consider a non-contrast Chest CT at 3 months, a PET/CT, or tissue sampling. These guidelines do not apply to immunocompromised patients and patients with cancer. Foll ow up in patients with significant comorbidities as clinically warranted. For lung cancer screening, adhere to Lung-RADS guidelines. Reference: Radiology. 2017; 284(1):228-43. Fatty filtration of the liver. Electronically signed by: Brian Rico MD 03/17/2021 1:31 AM CDT Due to temporary technical issues with the PACS/Fluency reporting system, reports are being signed by the in house radiologist without review as a courtesy to ensure prompt reporting. The interpreting r adiologist is fully responsible for the content of the report.
--- NOTE | 2021-03-17 11:09 | EKG ---
Test Date: 2021-03-16 Test Time: 23:47:13 Water Quality Analyst: NEO MEASUREMENT RESULTS: Intervals: Rate: 114 MS: 136 QRSD: 80 QT: 344 QTc: 474 [place]: P: 57 MS: 136 QRS: 16 T: 38 INTERPRETIVE STATEMENTS: Sinus tachycardia Inferior infarct, age undetermined Possible Anterior infarct, age undetermined Abnormal ECG No previous ECG available for comparison Electronically Signed On 03-17-21 11:07:30 CDT by Clement Trujillo
== END 2021-03-17 04:35 | disposition home or self-care (01) ==
LOC: ER 23:05
DX: U07.1 COVID-19 (principal); J12.89 Other viral pneumonia; E11.9 Type 2 diabetes mellitus without complications; F31.9 Bipolar disorder, unspecified; F17.210 Nicotine dependence, cigarettes, uncomplicated; Z79.4 Long term (current) use of insulin; Z91.040 Latex allergy status; Z91.048 Other nonmedicinal substance allergy status
CPT/HCPCS: 96361; 93005; 85025; 80048; 36415; 83735; 81025; 85610; 85379; 80076; 81003; 84484 ×2; 82728; 83880; 86140; 71275; 71046; 96375; 96372; 96374; 99284; Q9967; J1100; J7030

== ENCOUNTER 2024-12-06 02:42 | Emergency (ER) | payer OTHER ==
[2024-12-06] MEDS ORDERED: IPRATROPIUM BROM 0.5MG/2.5ML ONE (03:16)
[2024-12-06] MEDS ORDERED: LEVALBUTEROL 1.25 MG/3 ML NEB ONE (03:16)
[2024-12-06] MEDS ORDERED: CEFTRIAXONE 1000 MG/VIAL ONE (03:16)
[2024-12-06] MEDS ORDERED: IBUPROFEN 200 MG TAB PO ONE (03:17)
[2024-12-06] MEDS ORDERED: AMOX/K CLAV 875 MG TAB ONE (03:17)
[2024-12-06] MEDS ORDERED: predniSONE 20 MG TAB ONE (03:17)
[2024-12-06] MEDS ORDERED: IBUPROFEN 400 MG TAB ONE (03:18)
[2024-12-06] MEDS ORDERED: LIDOCAINE 1% MPF 2 ML AMPULE ONE (03:18)
[2024-12-06 03:38] LABS: Influenza A Ag Negative; Influenza B Ag Negative; SARS-CoV-2 Antigen Rapid Res Negative (Negative)
--- NOTE | 2024-12-06 04:23 | ER ---
Nurse's Notes [facility] Name: Christa Lara Age: 44 yrs Sex: Female : 1980 Arrival Date: 12/06/2024 Time: 02:42 Bed 8 Private MD: Diagnosis: Acute upper respiratory infection, unspecified;Acute serous otitis media, right ear;Tobacco abuse counseling;Tobacco use Presentation: 12/06 03:01 Chief complaint: Patient states: cough, congestion, runny nose X3 days. new onset right lg3 ear pain 05/07. Coronavirus screen: Client denies travel out of the [place] in the last 14 days. Ebola Screen: No symptoms or risks identified at this time. Initial Sepsis Screen: Does the patient meet any 2 criteria? No. Patient's initial sepsis screen is negative. Does the patient have a suspected source of infection? No. Patient's initial sepsis screen is negative. Risk Assessment: Do you want to hurt yourself or someone else? Patient reports no desire to harm self or others. Onset of symptoms was December 06, 2024. 03:01 Method Of Arrival: Ambulatory lg3 03:01 Acuity: RAMIRO 4 lg3 Triage Assessment: 03:04 General: Appears in no apparent distress. comfortable, Behavior is calm, cooperative. lg3 Pain: Complains of pain in right ear. EENT: Reports nasal congestion nasal discharge pain in right ear. Neuro: No deficits noted. Gold Agitation-Sedation Scale (RASS): 0 - Alert and Calm Level of Consciousness is awake, alert, obeys commands, Oriented to person, place, time, situation. Cardiovascular: No deficits noted. Denies chest pain, shortness of breath, Capillary refill < 3 seconds Clubbing of nail beds is absent JVD is absent Patient's skin is warm and dry. Respiratory: No deficits noted. Reports cough that is Airway is patent Respiratory effort is even, unlabored, Respiratory pattern is regular, symmetrical. GI: No deficits noted. No signs and/or symptoms were reported involving the gastrointestinal system. : No signs and/or symptoms were reported regarding the genitourinary system. Derm: No deficits noted. No signs and/or symptoms reported regarding the dermatologic system. Skin is intact, is healthy with good turgor, Skin is dry, Skin is normal, Skin temperature is warm. Musculoskeletal: No deficits noted. No signs and/or symptoms reported regarding the musculoskeletal system. Circulation, motion, and sensation intact. Range of motion: intact in all extremities. 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 - Infectious Disease History:: Denies. - Social history:: Smoking status: Patient reports the use of cigarette tobacco products, smokes one-half pack cigarettes per day, Patient/guardian denies using alcohol, street drugs. Screenin:38 [facility] ED Fall Risk Assessment (Adult) History of falling in the last 3 months, ha1 including since admission No falls in past 3 months (0 pts) Confusion or Disorientation No (0 pts) Intoxicated or Sedated No (0 pts) Impaired Gait No (0 pts) Mobility Assist Device Used No (0 pt) Altered Elimination No (0 pt) Score/Fall Risk Level 0 - 2 = Low Risk Oriented to surroundings, Maintained a safe environment, Educated pt \T\ family on fall prevention, incl call for assistance when getting out of bed, Hourly rounding (assess needs \T\ fall precautionary measures) done. Abuse screen: Denies threats or abuse. Denies injuries from another. Nutritional screening: No deficits noted. Tuberculosis screening: No symptoms or risk factors identified. Assessment: 03:00 General: Appears uncomfortable, Behavior is calm, cooperative. Pain: Complains of pain ha1 in right ear Pain currently is 9 out of 10 on a pain scale. Quality of pain is described as throbbing. Neuro: Level of Consciousness is awake, alert, obeys commands, Oriented to person, place, time, situation. Cardiovascular: Capillary refill < 3 seconds Patient's skin is warm and dry. Respiratory: Reports cough that is non-productive, dry, hacking, persistent Airway is patent Respiratory effort is even, unlabored, Respiratory pattern is regular, symmetrical, Breath sounds are clear bilaterally. GI: No signs and/or symptoms were reported involving the gastrointestinal system. : No signs and/or symptoms were reported regarding the genitourinary system. EENT: Reports pain in right ear. Derm: Skin is pink, warm \T\ dry. Musculoskeletal: Circulation, motion, and sensation intact. Range of motion: intact in all extremities. 04:00 Reassessment: Patient and/or family updated on plan of care and expected duration. Pain ha1 level reassessed. Patient is alert, oriented x 3, equal unlabored respirations, skin warm/dry/pink. Patient states feeling better. Patient states symptoms have improved. 04:50 Reassessment: Patient and/or family updated on plan of care and expected duration. Pain ha1 level reassessed. Patient is alert, oriented x 3, equal unlabored respirations, skin warm/dry/pink. Patient denies pain at this time. Patient states feeling better. Patient states symptoms have improved. Vital Signs: 03:01 BP 114 / 79; Pulse 95; Resp 16 S; Temp 97.8(O); Pulse Ox 95% on R/A; Weight 81.65 kg lg3 (R); Height 5 ft. 8 in. (R); 04:03 BP 131 / 97; Pulse 72; Resp 17; Temp 97.8; Pulse Ox 97% ; bm8 04:50 BP 133 / 95; Pulse 71; Resp 18 S; Pulse Ox 98% on R/A; ha1 03:01 Body Mass Index 27.37 (81.65 kg, 172.72 cm) lg3 Nicholas Coma Score: 04:03 Eye Response: spontaneous(4). Motor Response: obeys commands(6). Verbal Response: bm8 oriented(5). Total: 15. ED Course: 02:48 Patient arrived in ED. gm2 02:49 Bal Gonsalves MD is Attending Physician. jefe 02:53 Patient has correct armband on for positive identification. Bed in low position. Call ha1 light in reach. Side rails up X 1. 03:04 Triage completed. lg3 03:04 Arm band placed on right wrist. lg3 03:20 Provided Education on: MEDICATION ADMINISTRATION . ha1 03:32 COVID-19 Ag + Flu A+B Ag Sent. ha1 04:02 Chest Pa And Lat (2 Views) XRAY In Process Unspecified. EDMS 04:51 No provider procedures requiring assistance completed. Patient did not have IV access ha1 during this emergency room visit. Administered Medications: 03:31 Drug: Levalbuterol Inhalation 2.5 mg Inhalation once Route: Inhalation; ha1 04:00 Follow up: Response: No adverse reaction; Marked relief of symptoms ha1 03:31 Drug: Ipratropium Inhalation Aerosol 0.5 mg Inhalation once Route: Inhalation; ha1 04:00 Follow up: Response: No adverse reaction; Marked relief of symptoms ha1 03:31 Drug: Ibuprofen PO 600 mg PO once Route: PO; ha1 04:00 Follow up: Response: No adverse reaction; Pain is decreased ha1 03:31 Drug: Amoxicillin-Clavulanate PO 875 mg PO once Route: PO; ha1 04:00 Follow up: Response: No adverse reaction ha1 03:31 Drug: predniSONE PO 60 mg PO once Route: PO; ha1 04:00 Follow up: Response: No adverse reaction ha1 03:32 Drug: Rocephin (cefTRIAXone) IM 1 grams IM once Route: IM; Site: right ventrogluteal; ha1 04:00 Follow up: Response: No adverse reaction ha1 Medication: 03:39 VIS not applicable for this client. ha1 Outcome: 04:22 Discharge ordered by . jefe 04:53 Patient left the ED. ha1 Signatures: Dispatcher [employer] EDMS Bal Gonsalves MD MD cha Able, Lacie RN RN lg3 Mallorie Schwab RN RN ha1 Autumn Marquez 2 Dixon Levi RN RN bm8 Corrections: (The following items were deleted from the chart) 04:52 04:51 Response: No adverse reaction ha1 ha1 04:52 04:52 Response: No adverse reaction ha1 ha1
--- NOTE | 2024-12-06 04:23 | EDPHYS ---
Physician Documentation [facility] Name: Christa Lara Age: 44 yrs Sex: Female : 1980 Arrival Date: 12/06/2024 Time: 02:42 Bed 8 Private MD: ED Physician Bal Gonsalves HPI: 12/06 03:52 This 44 yrs old Female presents to ER via Ambulatory with complaints of jefe Fever, Ear Pain, Cough, Congestion. 03:52 The patient reports fever, not measured (subjective). Onset: The symptoms/episode jefe began/occurred 2 day(s) ago. Modifying factors: there are no obvious modifying factors. Severity of symptoms: At their worst the symptoms were mild in the emergency department the symptoms are unchanged. The patient has experienced similar episodes in the past, a few times. 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 - Infectious Disease History:: Denies. - Social history:: Smoking status: Patient reports the use of cigarette tobacco products, smokes one-half pack cigarettes per day, Patient/guardian denies using alcohol, street drugs. ROS: 03:59 Constitutional: Negative for fever, chills, and weight loss, Eyes: Negative for injury, jefe pain, redness, and discharge, ENT: Negative for injury, pain, and discharge, Neck: Negative for injury, pain, and swelling, Cardiovascular: Negative for chest pain, palpitations, and edema, Abdomen/GI: Negative for abdominal pain, nausea, vomiting, diarrhea, and constipation, Back: Negative for injury and pain, : Negative for injury, bleeding, discharge, and swelling, MS/Extremity: Negative for injury and deformity, Skin: Negative for injury, rash, and discoloration, Neuro: Negative for headache, weakness, numbness, tingling, and seizure, Psych: Negative for depression, anxiety, suicide ideation, homicidal ideation, and hallucinations, Allergy/Immunology: Negative for hives, rash, and allergies, Endocrine: Negative for neck swelling, polydipsia, polyuria, polyphagia, and marked weight changes, Hematologic/Lymphatic: Negative for swollen nodes, abnormal bleeding, and unusual bruising, 03:59 Respiratory: Positive for cough, "sounds productive", Exam: 03:59 Constitutional: This is a well developed, well nourished patient who is awake, alert, jefe and in no acute distress. Head/Face: Normocephalic, atraumatic. Eyes: Pupils equal round and reactive to light, extra-ocular motions intact. Lids and lashes normal. Conjunctiva and sclera are non-icteric and not injected. Cornea within normal limits. Periorbital areas with no swelling, redness, or edema. ENT: Nares patent. No nasal discharge, no septal abnormalities noted. Tympanic membranes are normal and external auditory canals are clear. Oropharynx with no redness, swelling, or masses, exudates, or evidence of obstruction, uvula midline. Mucous membranes moist. Neck: Trachea midline, no thyromegaly or masses palpated, and no cervical lymphadenopathy. Supple, full range of motion without nuchal rigidity, or vertebral point tenderness. No Meningismus. Chest/axilla: Normal chest wall appearance and motion. Nontender with no deformity. No lesions are appreciated. Cardiovascular: Regular rate and rhythm with a normal S1 and S2. No gallops, murmurs, or rubs. Normal PMI, no JVD. No pulse deficits. Abdomen/GI: Soft, non-tender, with normal bowel sounds. No distension or tympany. No guarding or rebound. No evidence of tenderness throughout. Back: No spinal tenderness. No costovertebral tenderness. Full range of motion. Skin: Warm, dry with normal turgor. Normal color with no rashes, no lesions, and no evidence of cellulitis. MS/ Extremity: Pulses equal, no cyanosis. Neurovascular intact. Full, normal range of motion., bilateral aka Neuro: Awake and alert, GCS 15, oriented to person, place, time, and situation. Cranial nerves II-XII grossly intact. Motor strength 5/5 in all extremities. Sensory grossly intact. Cerebellar exam normal. Normal gait. Psych: Awake, alert, with orientation to person, place and time. Behavior, mood, and affect are within normal limits. 03:59 Respiratory: the patient does not display signs of respiratory distress, Respirations: normal, Breath sounds: bronchial sounds, that are mild, are scattered, decreased breath sounds, that are mild, are scattered, rhonchi, that are mild, are scattered, stridor, is not appreciated, + upper airway congestion. wheezing: expiratory Vital Signs: 03:01 BP 114 / 79; Pulse 95; Resp 16 S; Temp 97.8(O); Pulse Ox 95% on R/A; Weight 81.65 kg lg3 (R); Height 5 ft. 8 in. (R); 04:03 BP 131 / 97; Pulse 72; Resp 17; Temp 97.8; Pulse Ox 97% ; bm8 04:50 BP 133 / 95; Pulse 71; Resp 18 S; Pulse Ox 98% on R/A; ha1 03:01 Body Mass Index 27.37 (81.65 kg, 172.72 cm) lg3 Radford Coma Score: 04:03 Eye Response: spontaneous(4). Motor Response: obeys commands(6). Verbal Response: bm8 oriented(5). Total: 15. MDM: 02:50 Medical Screening Exam initiated jefe 04:03 Antibiotic administration: The patient is discharged and will get outpatient [facility] antibiotics, Amoxicillin. Differential diagnosis: otitis externa, ruptured TM, foreign body, acute otalgia, cerumen impaction, viral Infection, bacterial infection, URI, bronchitis, pneumonia UTI. Data reviewed: vital signs, nurses notes, lab test result(s), radiologic studies. Consideration of Admission/Observation Escalation of care including admission/observation considered. I considered the following discharge prescriptions or medication management in the emergency department Medications were administered in the Emergency Department. See MAR. Independent interpretation of the following test(s) in the Emergency Department X-Ray: My interpretation is cxr . Test considered but Not performed: Labs: no cbc , cmp. Care significantly affected by the following chronic conditions: Diabetes, bipolar, pcos. Counseling: I had a detailed discussion with the patient and/or guardian regarding the historical points, exam findings, and any diagnostic results supporting the discharge/admit diagnosis, lab results, radiology results, the need for outpatient follow up, for definitive care, a family practitioner. 12/06 03:07 Order name: COVID-19 Ag + Flu A+B Ag; Complete Time: 03:52 jefe 12/06 03:07 Order name: Chest Pa And Lat (2 Views) XRAY jefe Administered Medications: 03:31 Drug: Levalbuterol Inhalation 2.5 mg Inhalation once Route: Inhalation; ha1 04:00 Follow up: Response: No adverse reaction; Marked relief of symptoms ha1 03:31 Drug: Ipratropium Inhalation Aerosol 0.5 mg Inhalation once Route: Inhalation; ha1 04:00 Follow up: Response: No adverse reaction; Marked relief of symptoms ha1 03:31 Drug: Ibuprofen PO 600 mg PO once Route: PO; ha1 04:00 Follow up: Response: No adverse reaction; Pain is decreased ha1 03:31 Drug: Amoxicillin-Clavulanate PO 875 mg PO once Route: PO; ha1 04:00 Follow up: Response: No adverse reaction ha1 03:31 Drug: predniSONE PO 60 mg PO once Route: PO; ha1 04:00 Follow up: Response: No adverse reaction ha1 03:32 Drug: Rocephin (cefTRIAXone) IM 1 grams IM once Route: IM; Site: right ventrogluteal; ha1 04:00 Follow up: Response: No adverse reaction ha1 Disposition Summary: 12/06/24 04:22 Discharge Ordered Notes: Location: Home jefe Problem: new jefe Symptoms: have improved jefe Condition: Stable jefe Diagnosis - Acute upper respiratory infection, unspecified jefe - Acute serous otitis media, right ear jefe - Tobacco abuse counseling jefe - Tobacco use jefe Followup: jefe - With: Private Physician - When: 2 - 3 days - Reason: Recheck today's complaints, Continuance of care, Re-evaluation by your physician Discharge Instructions: - Discharge Summary Sheet jefe - Self-Destructive Behavior jefe - Steps to Quit Smoking jefe - Health Risks of Smoking jefe - Cool Mist Vaporizer jefe - Otitis Media, Adult, [id number] jefe - Upper Respiratory Infection, Adult, [id number] jefe - Upper Respiratory Infection, Pediatric, [id number] jefe - Cough, Adult jefe Forms: - Medication Reconciliation Form jefe - Antibiotic Education jefe - Prescription Opioid Use jefe - Patient Portal Instructions jefe - Leadership Thank You Letter jefe Prescriptions: - albuterol sulfate 90 mcg/actuation Inhalation HFA Aerosol Inhaler - inhale 2 puff INHALATION route every 6 hours as needed for shortness of breath jefe or wheezing; 1 unit; Refills: 0, Product Selection Permitted - Augmentin 875-125 mg Oral Tablet - take 1 tablet ORAL route every 12 hours for 10 days; 20 tablet; Refills: 0, [facility] Product Selection Permitted - Tessalon Perles 100 mg Oral capsule - take 2 capsule ORAL route every 8 hours As needed; 30 capsule; Refills: 0, [facility] Product Selection Permitted - Prednisone 20 mg Oral Tablet - take 2 tablets ORAL route once daily for 5 days; 10 tablet; Refills: 0, Product jefe Selection Permitted Signatures: Dispatcher [employer] Bal Aleman MD MD cha Able, Lacie RN RN lg3 Mallorie Schwab RN RN ha1
[2024-12-06 05:05] VITALS: TEMP 97.8
[2024-12-06 05:10] VITALS: BP 133/95; O2SAT 98
--- NOTE | 2024-12-06 06:09 | RAD REPORT ---
EXAM: XR Chest 2 Views AP PA Lateral HISTORY: Cough COMPARISON: None TECHNIQUE: Chest 2 Views AP PA Lateral FINDINGS: Heart size and pulmonary vessels within normal limits. Lungs clear without evidence of consolidation, mass, or significant pulmonary edema. No significant pleural effusion or pneumothorax. Bones unremarkable. IMPRESSION: Unremarkable chest radiograph. Electronically signed by: Jurgen Caba MD 12/06/2024 05:42 AM CDT RP Due to temporary technical issues with the PACS/[employer] reporting system, reports are being jessee d by the in-house radiologist without review as a courtesy to ensure prompt reporting the interpreting radiologist is fully responsible for the content of the report. Transcribed Date/Time: 12/06/2024 6:09 AM
== END 2024-12-06 04:53 | disposition home or self-care (01) ==
LOC: ER 02:42
DX: J06.9 Acute upper respiratory infection, unspecified (principal); H65.01 Acute serous otitis media, right ear; Z71.6 Tobacco abuse counseling; Z72.0 Tobacco use; Z11.52 Encounter for screening for COVID-19
CPT/HCPCS: 36415; 71046; 96372; 99284; 87428; J7512; J7614; J7644; J0696